=== PATIENT | female | born 1985 | race Caucasian/White ===

== ENCOUNTER 2022-01-16 14:26 | Emergency (ER) | payer SELFPAY ==
[2022-01-16] MEDS ORDERED: MEDROL 4MG DOSEP4 MG PO (18:41)
[2022-01-16] MEDS ORDERED: CYCLOBENZAPRINE10 MG PO (18:41)
== END 2022-01-16 19:00 | disposition home or self-care (01) ==
LOC: FER 14:26
DX: M54.31 Sciatica, right side (principal); Z91.018 Allergy to other foods
CPT/HCPCS: 96372; J1100; J1885